=== PATIENT | male | born 1995 | race Caucasian/White ===

== ENCOUNTER 2017-10-28 19:20 | Inpatient (IN) | payer BC, OTHER ==
[~2017-10-28 19:20] MED LIST: Iopamidol 370 76% 100 ML VIAL ONE
[2017-10-28] MEDS ORDERED: Acetaminophen 500 MG TAB ONE (19:35)
[2017-10-28] MEDS ORDERED: Ondansetron HCl/PF 4 MG/2 ML Vial ONE (20:24)
[2017-10-28] MEDS ORDERED: Morphine 10 MG/ML VIAL ONE (20:24)
[2017-10-28 20:25] LABS: Hemoglobin 15.3 g/dL (14.0-18.0); Mean Corpuscular HGB CONC 34.2 g/dL (32.0-36.0); Mean Corpuscular Hemoglobin 30.7 pg (27.0-31.0); Mean Corpuscular Volume 89.7 fl (80.0-94.0); Mean Platelet Volume 9.1 fL (7.4-10.4); Platelet Count 152 thou/uL (130-400); RBC Distribution Width 11.6 % (11.5-14.5); Red Blood Cell (RBC) Count 4.98 mill/uL (4.70-6.10)
[2017-10-28 20:43] LABS: ALT (SGPT) 15 U/L (8-55); AST (SGOT) 17 U/L (5-34); Albumin 4.5 g/dL (3.5-5.0); Alkaline Phosphatase 59 U/L (40-150); Anion Gap 17 mmol/L (10-20); BUN (Urea Nitrogen) 15 mg/dL (8.9-20.6); Bilirubin, Total 1.6 mg/dL (0.2-1.2); Calc. Creatinine Clearance 0 mL/min (70-130); Calcium 9.8 mg/dL (7.8-10.44); Carbon Dioxide 23 mmol/L (22-29); Chloride 99 mmol/L (98-107); Estimated GFR-MDRD Greater than 90; Globulin 3.1 g/dL (2.4-3.5); Glucose 109 mg/dL (70-105); Lipase 45 U/L (8-78); Protein, Total 7.6 g/dL (6.0-8.3); Sodium 135 mmol/L (136-145)
[2017-10-28 20:49] LABS: Band 8 % (5-11); Lymphocytes 5 % (21-51); MDiff Complete? YES; Monocytes 10 % (0-10); Neutrophil 77 % (42-75)
[2017-10-28 22:36] LABS: Bilirubin Negative (Negative); Blood, Urine Negative (Negative); Clarity Clear (Clear); Glucose, Urine (Dipstick) Negative (Negative); Leukocyte Negative (Negative); Nitrite Negative (Negative); Protein, Urine (Dipstick) Negative (Neg-Trace)
--- NOTE | 2017-10-28 22:49 | CT ---
CT SCAN ABDOMEN AND PELVIS: 10/28/17 Multiple axial tomograms obtained through the abdomen and pelvis with IV enhancement. HISTORY: Right lower quadrant pain with fever. Lung bases are clear. Liver, spleen and pancreas unremarkable. Adrenal glands and kidneys unremarkabl e. Small bowel loops appear normal. There is a dilated appendix which measures up to 15 mm. There is mild surrounding haziness and possib ly periappendiceal fluid. No evidence of abscess collection or extraluminal gas. IMPRESSION: Dilated mildly enlarged appendix consistent with appendicitis. Findings relayed to Dr. Zambrano. Code CR POS: [facility]
[2017-10-28] MEDS ORDERED: Piperacillin/Tazobactam 4.5 GM VIAL ONE (22:50)
[2017-10-29 00:37] VITALS: BMI 20.8
[2017-10-29] MEDS ORDERED: Sodium Chloride 0.9% 1,000 ML IV SCH (00:43)
[2017-10-29] MEDS ORDERED: Ondansetron HCl/PF 4 MG/2 ML Vial IVP PRN (00:43)
[2017-10-29] MEDS ORDERED: Ondansetron ODT 4 MG TAB SL PRN (00:43)
[2017-10-29] MEDS ORDERED: Ketorolac Tromethamine 30 MG/ML VIAL IVP PRN (05:24)
[2017-10-29] MEDS ORDERED: Acetaminophen 500 MG TAB PO PRN (05:24)
[2017-10-29] MEDS ORDERED: Acetaminophen 1,000 MG in Premix Bag 1 BAG IVPB PRN (05:24)
[2017-10-29] MEDS ORDERED: Piperacillin/Tazobactam 4.5 GM in Sodium Chloride 0.9% 100 ML IVPB SCH (06:00)
[2017-10-29] MEDS ORDERED: FLU VACC QS2017-18 36 mo. & older 0.5 ML SYRINGE IM ONE (09:00)
[2017-10-29] MEDS ORDERED: Bupivacaine 0.25% HCL 30 ML VIAL ONE (09:31)
[2017-10-29] MEDS ORDERED: Lidocaine 2% w/Epinephrine 1:200K 20 ML VIAL ONE (09:31)
[2017-10-29] MEDS ORDERED: Fentanyl 100 MCG/2 ML VIAL ONE (09:37)
[2017-10-29] MEDS ORDERED: Midazolam HCl 2 mg/2 ml Vial ONE (09:37)
[2017-10-29] MEDS ORDERED: Ketorolac Tromethamine 30 MG/ML VIAL ONE (09:50)
[2017-10-29] MEDS ORDERED: Ibuprofen 600 MG TAB PO PRN (10:10)
[2017-10-29] MEDS ORDERED: traMADol HCl 50 MG TAB PO PRN ×2 (10:10)
--- NOTE | 2017-10-29 10:38 | HP ---
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 Two days ago, evening experienced onset of epigastric cesario n localizing to his right lower quadrant. Several hours later, it is followed by nausea, anorexia, i ncreased pain with movement. He presented to the emergency room, [facility]'s ER and CAT scan revealed changes consistent with appendicitis. CAT scan obtained at 8:18 p.m. He was clark sferred to [facility] on 10/29/2017 at 03:21 p.m. White count 14, hemoglobin 15. Basic met abolic profile unremarkable except for bilirubin slightly elevated at 1.6. ALLERGIES: AZITHROMYCIN. TOBACCO: None. ALCOHOL: Rarely. MEDICATIONS: None. PAST SURGICAL HISTORY: Noncontributory. PAST MEDICAL HISTORY: Noncontributory. REVIEW OF SYSTEMS: Ten point noncontributory. PHYSICAL EXAMINATION: VITAL SIGNS: Temperature 99 degrees, pulse 54, respiratory rate 16, blood pressure 112/64. HEAD, EARS, EYES, NOSE AND THROAT: Unremarkable. LUNGS: Clear to auscultation. CARDIAC: Regular rate and rhythm without murmur or gallop. ABDOMEN: Soft, tenderness in the right lower quadrant with guarding. EXTREMITIES: Unremarkable. ASSESSMENT AND PLAN: Acute appendicitis. Recommend laparoscopic video appendectomy. Risk of infect ion, bleeding, visceral injury, open procedure were discussed and he consents. Questions were answer ed. Plan to discharge home later today.
--- NOTE | 2017-10-29 10:46 | DIS ---
DISCHARGE DIAGNOSIS: Appendicitis. PROCEDURE: Laparoscopic video appendectomy. HISTORY: A 21-year-old male, who presented to [facility], [place], ecause of onset of pain in epigastrium, localizing to his right lower quadrant on Monday. He present ed Monday night to the emergency room, and at 8:00 p.m., he had a CAT scan of the abdomen and pelvi s, and I was called at approximately 11:00 p.m. The patient was admitted to the hospital overnight a nd is taken to the operating room for laparoscopic video appendectomy. He has been discharged home a t this time. He will follow up in my office in 2-3 weeks. Diet and activity as tolerated.
--- NOTE | 2017-10-29 11:15 | OP ---
DATE OF PROCEDURE: 10/29/2017 PREOPERATIVE DIAGNOSIS: Acute appendicitis. POSTOPERATIVE DIAGNOSIS: Acute appendicitis. PROCEDURE: Laparoscopic video appendectomy. SURGEON: Dr. Pramod Fonseca ANESTHESIA: General. Local 0.5% Marcaine, 30 mL, mixed with 1% Xylocaine with epinephrine, 20 mL. DESCRIPTION OF PROCEDURE: Patient was taken to the operating room where under general anesthesia, Fo myriam catheter placed through beginning of procedure and removed at the end. Abdomen clipped of hair, prepared with ChloraPrep, draped in routine fashion. Local anesthetic infiltrated into skin and subc utaneous tissue about each port site. Infraumbilical incision made and pneumoperitoneum to 15 mmHg o btained with the Veress needle, replacing it with a 5 port VAC. Video laparoscope inserted. Right l ateral subcostal incision made and a 5 port placed. Suprapubic incision made and 12 port placed. Ap pendix was retrocecal and dissected free. Mesoappendix divided with LigaSure down to the stump of th e appendix divided with Endo-ASHANTI blue load stapler. Appendix removed and submitted to pathology. He mostasis gained with the LigaSure. Good hemostasis ensured. Irrigant and pneumoperitoneum evacuated . Suprapubic fascia approximated with 0 Vicryl. All skin incisions approximated with interrupted rincon bdermal 4-0 Monocryl and DermaGlue applied.
[2017-10-29] MEDS ORDERED: PROPOFOL 200 MG/20 ML VIAL ONE (15:54)
[2017-10-29] MEDS ORDERED: Lidocaine 1% PF 5 ML VIAL ONE (15:54)
[2017-10-29] MEDS ORDERED: ePHEDrine/0.9% NaCl/PF SYRINGE 50 mg/10 ml ONE (15:54)
[2017-10-29] MEDS ORDERED: Ondansetron HCl/PF 4 MG/2 ML Vial ONE (15:54)
[2017-10-29] MEDS ORDERED: Succinylcholine Chloride 20 MG/ML 10 ml SYRINGE FS ONE (15:54)
[2017-10-29 16:51] VITALS: BP 114/69; TEMP 98.1
== END 2017-10-29 17:05 | disposition home or self-care (01) | DRG 343 ==
LOC: SCSER 19:20 → OBSVTOIN 10-29 00:25 → SURG A 10-29 00:25
PROVIDERS: ADMIT Specialist; ATTEND Specialist
PROC: 0DTJ4ZZ Resection of Appendix, Percutaneous Endoscopic Approach (ICD-10-PCS; principal; 2017-10-29)
DX: K35.80 Unspecified acute appendicitis (principal); Z88.1 Allergy status to other antibiotic agents
CPT/HCPCS: 74177; 80053; 81003; 83690; 85025; 87040; 88304; 96361; 96365; 96375; J0131; J1885; J2001; J2250; J2270; J2405; J2543; J2704; J3010; S0020